=== PATIENT | male | born 1970 | race Caucasian/White ===

== ENCOUNTER 2023-07-08 11:31 | Emergency (ER) | payer BC, SELFPAY ==
[2023-07-08 11:34] VITALS: BP 142/80; PULSE 101; RESP 18; TEMP 36.6; O2SAT 95; BMI 50.2
--- NOTE | 2023-07-08 11:57 | CT_ITS ---
[address] [address] Patient Name: LUCINA GOODRICH MRN: [id number] date: 1970 Sex: M Assigned Patient Location: ER Current Patient Location: ED.MAIN Accession/Order Number: [id number] Exam Date: 07/08/2023 12:25 Report Date: 07/08/2023 12:56 At the request of: KEHINDE BAUM Procedure: CT abdomen pelvis w con EXAMINATION: CT abdomen pelvis w con HISTORY: upper abd pain COMPARISON: No relevant comparison available. TECHNIQUE: CT images were created with IV contrast. Axial, Coronal, and Sagittal images. Dose reduction techniques were achieved by using automated exposure control and/or adjustment of mA and/or kV according to patient size and/or use of iterative reconstruction technique. FINDINGS: LUNG BASES: Mild bibasilar opacities, atelectasis is favored. 1.3 cm right pleural effusion. LIVER: Diffuse hypoattenuation the liver suggesting hepatic steatosis BILIARY: Gallbladder wall thickening with a small amount of pericholecystic cystic fluid and mesenteric stranding PANCREAS: No lesion, fluid collection, ductal dilatation, or atrophy. SPLEEN: No enlargement or focal lesion. ADRENALS: No mass or enlargement. KIDNEYS: No mass, obstruction, or calcification. Left renal cortical hypodensity, a cyst is favored BOWEL/MESENTERY: No visible mass, obstruction, or bowel wall thickening. Small amount of free pelvic fluid AORTA/VASCULAR: No aneurysm or dissection. RETROPERITONEUM: No mass or adenopathy. LYMPH NODES: No adenopathy. URINARY BLADDER: No visible focal wall thickening, lesion, or calculus. PELVIC ORGANS: No visible mass. Pelvic organs appropriate for patient age. ABDOMINAL WALL: No mass or hernia. BONES: No bony lesion or fracture. OTHER: Negative. CT/CT abdomen pelvis w con IMPRESSION: Findings are consistent with acute cholecystitis Electronically authenticated by: CAROLINA KENNEDY Date: 07/08/2023 12:56
--- NOTE | 2023-07-08 11:58 | ED.ABDPAIN1 ---
HPI - Abdominal Pain General Chief Complaint: Abdominal Pain Stated Complaint: abdominal pain Time Seen by Provider: 07/08/23 11:52 Source: patient Mode of arrival: walk-in Limitations: no limitations History of Present Illness HPI narrative: 53-year-old male presents to the emergency department for abdominal pain. He points to the epigastric area and the right upper quadrant and he's had it for three weeks. He states he has a fullness there. He's been having normal bowel movements, not passing blood. No trauma or fever. A month ago he had an upper respiratory infection has resolved. The pain is moderate and continuous. Related Data Allergies Allergy/AdvReac Type Severity Reaction Status Date / Time amoxicillin Allergy Unknown Verified 07/08/23 11:34 Review of Systems ROS Narrative A ten point review of systems is negative except as noted above. PFSH PFSH Social History Smoking status: Never smoker Exam Narrative Exam Narrative: Nurses note and vital signs reviewed and patient is not hypoxic. General: The patient appears well and in no apparent distress. Patient is resting comfortably on cart. Skin: Warm, dry, no pallor noted. There is no rash noted. Head: Normocephalic, atraumatic Eye: Normal conjunctiva, no drainage Ears, Nose, Mouth, and Throat: oral mucosa is moist. Nares patent. Cardiovascular: Regular Rate and Rhythm Respiratory: Patient is in no distress, no accessory muscle use, lungs are clear to auscultation, no wheezing, rales or rhonchi Back: non-tender GI: obese, nondistended. No rash. He has mild tenderness in the epigastric and right upper quadrant area. Musculoskeletal: The patient has no evidence of calf tenderness, no pitting edema, symmetrical pulses noted bilaterally Neurological: A&O, normal speech Psychiatric: Cooperative Constitutional Vital Signs, click to edit/add: Last Vital Signs Temp 98 F 07/08/23 11:34 Pulse 91 H 07/08/23 15:07 Resp 16 07/08/23 15:07 BP 136/87 07/08/23 15:07 Pulse Ox 98 07/08/23 15:07 O2 Del Method Room Air 07/08/23 11:34 Course Vital Signs Vital signs: Vital Signs Temperature 98 F 07/08/23 11:34 Pulse Rate 101 H 07/08/23 11:34 Respiratory Rate 18 07/08/23 11:34 Blood Pressure 142/80 H 07/08/23 11:34 Pulse Oximetry 95 07/08/23 11:34 Oxygen Delivery Method Room Air 07/08/23 11:34 Temperature 98 F 07/08/23 11:34 Pulse Rate 91 H 07/08/23 15:07 Respiratory Rate 16 07/08/23 15:07 Blood Pressure 136/87 07/08/23 15:07 Pulse Oximetry 98 07/08/23 15:07 Oxygen Delivery Method Room Air 07/08/23 11:34 MDM - Abdominal Pain MDM Narrative Medical decision making narrative: Labs are essentially normal. Gallbladder ultrasound and CT indicate acute cholecystitis. Case discussed with Dr. Hawthorne who has reviewed his testing and suggests that the patient requires percutaneous drainage with later removal of his gallbladder. I've discussed the case with the patient and I've spoken to hospitalist and surgeon at [facility] and the patient is accepted there. Treatment diagnosis and disposition were discussed with the patient. Differential Diagnosis Differential diagnosis: Likely abdominal pain, acute appendicitis, constipation, diverticulitis, pancreatitis (acute cholecystitis, biliary colic) and small bowel obstruction Lab Data Attestation: I reviewed the patient's lab results. Labs: Lab Results 07/08/23 Range/Units 12:15 WBC 9.0 (4.0-11.0) 10^3/uL RBC 4.79 (4.70-6.10) 10^6/uL Hgb 14.4 (14.0-18.0) g/dL Hct 43.3 (42.0-54.0) % MCV 90.4 (80.0-94.0) fL MCH 30.1 (25.9-34.0) pg MCHC 33.3 (29.9-35.2) g/dL RDW 13.7 (11.0-15.0) % Plt Count 260 (150-450) 10^3/uL MPV 11.5 (9.5-13.5) fL Neut % (Auto) 68.9 (43.0-75.0) % Lymph % (Auto) 20.8 (20.5-60.0) % [place] % (Auto) 7.6 (1.7-12.0) % Eos % (Auto) 1.6 (0.9-7.0) % Baso % (Auto) 0.9 (0.2-2.0) % Neut # (Auto) 6.2 (1.4-6.5) 10^3/uL Lymph # (Auto) 1.9 (1.2-3.8) 10^3/uL [place] # (Auto) 0.7 (0.3-0.8) 10^3/uL Eos # (Auto) 0.1 (0.0-0.7) 10^3/uL Baso # (Auto) 0.1 (0.0-0.1) 10^3/uL Abs Immat Gran (auto) 0.02 (0.00-0.03) 10^3/uL Imm/Tot Granulo (auto) 0.2 (0.0-0.5) % Sodium 142 (136-145) mmol/L Potassium 4.1 (3.5-5.1) mmol/L Chloride 106 (98-107) mmol/L Carbon Dioxide 28.2 (21.0-32.0) mmol/L Anion Gap 11.9 BUN 14.0 (7.0-18.0) mg/dL Creatinine 0.95 (0.70-1.30) mg/dL Est GFR ( Amer) >60 (>=60) Est GFR (Non-Af Amer) >60 (>=60) BUN/Creatinine Ratio 14.7 Glucose 101 (74-106) mg/dL Calcium 8.6 (8.5-10.1) mg/dL Total Bilirubin 0.8 (0.2-1.0) mg/dL Direct Bilirubin 0.2 (0.0-0.2) mg/dL AST 30 (15-37) U/L ALT 45 (16-63) U/L Alkaline Phosphatase 45 L (46-116) U/L Total Protein 6.4 (6.4-8.2) g/dL Albumin 3.1 L (3.4-5.0) g/dL Globulin 3.3 g/dL Albumin/Globulin Ratio 0.9 Amylase 31 (25-115) U/L Lipase 25.0 (16.0-77.0) U/L Imaging Data CT scan - abdomen: Radiologist's impression: ITS Impressions Abdomen/Pelvis CT 07/08/23 11:57 IMPRESSION: Findings are consistent with acute cholecystitis Electronically authenticated by: CAROLINA KENNEDY Date: 07/08/2023 12:56 Upper Quadrant Ultrasound 07/08/23 14:06 IMPRESSION: Gallbladder wall thickening consistent with cholecystitis Electronically authenticated by: CAROLINA KENNEDY Date: 07/08/2023 14:51 Discharge Plan Discharge Chief Complaint: Abdominal Pain Clinical Impression: Acute cholecystitis Patient Disposition: [facility] Time of Disposition Decision: 14:00 Discharge Location: [facility] Condition: Good Mode of Transportation: EMS
[2023-07-08 12:30] LABS: Basophils Absolute Auto 0.1 10^3/uL (0.0-0.1); Basophils Percent Auto 0.9 % (0.2-2.0); Eosinophils Absolute Auto 0.1 10^3/uL (0.0-0.7); Eosinophils Percent Auto 1.6 % (0.9-7.0); Hematocrit 43.3 % (42.0-54.0); Hemoglobin 14.4 g/dL (14.0-18.0); Immature Granulocytes Abs Auto 0.02 10^3/uL (0.00-0.03); Immature Granulocytes Pct Auto 0.2 % (0.0-0.5); Lymphocytes Absolute Auto 1.9 10^3/uL (1.2-3.8); Lymphocytes Percent Auto 20.8 % (20.5-60.0); Mean Corpuscular HGB Conc 33.3 g/dL (29.9-35.2); Mean Corpuscular Hemoglobin 30.1 pg (25.9-34.0); Mean Corpuscular Volume 90.4 fL (80.0-94.0); Mean Platelet Volume 11.5 fL (9.5-13.5); Monocytes Absolute Auto 0.7 10^3/uL (0.3-0.8); Monocytes Percent Auto 7.6 % (1.7-12.0); Neutrophils Absolute Auto 6.2 10^3/uL (1.4-6.5); Neutrophils Percent Auto 68.9 % (43.0-75.0); Platelet Count 260 10^3/uL (150-450); Red Blood Count 4.79 10^6/uL (4.70-6.10); Red Cell Distribution Width 13.7 % (11.0-15.0)
[2023-07-08 12:52] LABS: Alanine Aminotransferase 45 U/L (16-63); Albumin Globulin Ratio 0.9; Albumin Level 3.1 g/dL (3.4-5.0); Alkaline Phosphatase 45 U/L (46-116); Amylase 31 U/L (25-115); Anion Gap 11.9; Aspartate Amino Transferase 30 U/L (15-37); BUN Creatinine Ratio 14.7; Bilirubin Direct 0.2 mg/dL (0.0-0.2); Bilirubin Total 0.8 mg/dL (0.2-1.0); Calcium 8.6 mg/dL (8.5-10.1); Carbon Dioxide 28.2 mmol/L (21.0-32.0); Chloride 106 mmol/L (98-107); Estimated GFR (African America >60 (>=60); Estimated GFR (Non-African Ame >60 (>=60); Globulin 3.3 g/dL; Glucose 101 mg/dL (74-106); Potassium 4.1 mmol/L (3.5-5.1); Sodium 142 mmol/L (136-145); Total Protein 6.4 g/dL (6.4-8.2)
--- NOTE | 2023-07-08 14:06 | US_ITS ---
The [address] [address] Patient Name: LUCINA GOODRICH MRN: [id number] date: 1970 Sex: M Assigned Patient Location: ER Current Patient Location: ER Accession/Order Number: [id number] Exam Date: 07/08/2023 14:15 Report Date: 07/08/2023 14:51 At the request of: KEHINDE BAUM Procedure: US right upper quadrant EXAM: US right upper quadrant HISTORY: RUQ pain COMPARISON: CT exam same day. TECHNIQUE: Grayscale, color and Doppler FINDINGS: The liver is normal in size, contour and echotexture with no focal mass. Hepatopedal flow in the main portal vein with a velocity of 17 cm/s. The gallbladder is significant for a thickened wall measuring 4.7 mm. No pericholecystic fluid. The common bile duct measures 2.9 mm, normal. The visualized pancreas is normal The right kidney is normal measuring 12.7 x 5.6 x 5.6 cm. No solid mass or hydronephrosis No ascites US/US right upper quadrant IMPRESSION: Gallbladder wall thickening consistent with cholecystitis Electronically authenticated by: CAROLINA KENNEDY Date: 07/08/2023 14:51
[2023-07-08 15:07] VITALS: BP 136/87; PULSE 91; RESP 16; O2SAT 98
[2023-07-08] MEDS: METRONIDAZOLE/SODIUM CHLORIDE 500 MG/100 ML PREMIX 100 MG IV (16:07)
[2023-07-08] MEDS: CIPROFLOXACIN IN 5 % DEXTROSE 400 MG/200 ML PIGGYBACK IV (17:08)
== END 2023-07-08 19:37 | disposition short-term general hospital (02) ==
PROVIDERS: Emergency Provider Emergency Medicine
DX: K81.0 Acute cholecystitis (principal)
CPT/HCPCS: 36415; 74177; 76705; 80048; 80076; 82150; 83690; 85025; 96365; 96375; 99285; J0744; J1836; Q9967

== ENCOUNTER 2024-12-17 17:49 | Emergency (ER) | payer BC, SELFPAY ==
[2024-12-17 17:54] VITALS: BP 131/90; PULSE 114; TEMP 37.9; O2SAT 97; BMI 48.2
--- OUTSIDE RECORDS SUMMARY | 2024-12-17 17:59 | XMS_ITS | Encounter Summary ---
[id number] [address] [place] [address] Care Team Providers Care Tape Controlled Machine Stitcher Name Role Phone Nataly Shepard MD Primary Care Provider Encounter Details Date Type Department Care Team (Late st Contact Info) Description 07/17/2023 [facility] [address] [place] [address] [place] [address] Nasrin Gunn CMA Social History Tobacco Use Types Packs/Day Years Used Date Smoking Tobacco: Never Smokeless Tobacco: Never Alcohol Use Standard Drinks/Week Comments Yes 6 (1 standard drink = 0.6 oz pur e alcohol) weekly AUDIT-C Answer Date Recorded Q1: How often do you have a drink containing alc ohol? 2-4 times a month 07/08/2023 Q2: How many drinks containi ng alcohol do you have on a typical day when you are drinking? 1 or 2 07/08/2023 Q3: How often do you have si x or more drinks on one occasion? Never 07/08/2023 PHQ-2 Answer Date Recorded Total Score 0 07/08/2023 Childcare Answer Date Recorded Childcare Unknown 11/26/2018 Employment Answer Date Recorded Employment Unknown 11/26/2018 Hunger Screening Answer Date Recorded Within the past 12 months we worried whether our food would run out before we got money to buy more. Never True 07/24/2022 Within the past 12 months th e food we bought just didn't last and we didn't have money to get more. Never True 07/24/2022 Purpose - Life Answer Date Recorded Purpose and direction in life Unknown Sex and Gender Information Value Date Recorded Sex Assigned at Not on file Legal Sex Male 11:45 AM EDT Gender Identity Not on file Sexual Orientation Not on file documented as of this encounter Miscellaneous Notes * Telephone Encounter - Nasrin Gunn CMA - 07/17/2023 9:57 AM EST Patient called into office stating he was home from [facility] and was discharged yesterday 07/16/23. Patient is wondering if he is okay to take otc tylenol for headaches, he wasn't sure with the new medications he is on. Please advise? His follow up with provider is 07/25/23 * Telephone Encounter - Nataly Shepard MD - 07/17/2023 9:57 AM EST Yup that would be safe and ok Please call and notify patient. Thanks, NATALY SHEPARD MD 07/19/23 * Telephone Encounter - Nasrin Gunn CMA - 07/17/2023 9:57 AM EST Patient was called and notified. documented in this encounter Plan of Treatment Upcoming Encounters Date Type Department Care Team (Late st Contact Info) Description 12/24/2024 11:45 AM EDT Telemedicine [facility] [address] [place] [address] [place] [phone] Nataly Shepard MD [address], [place], [place] [phone] 02/17/2025 1:00 PM EDT Office Visit [facility] [address] [place] [phone] Mary Whitlock, NASCAR DRIVER-ENTRY LEVEL ADMINISTRATIVE ASSISTANT [address] [place] [address], [address] [place] [address] documented as of this encounter Goals Goal Patient Goal Type Associated Problems Recent Progress Patient-Stated? Author home General Yes Concha Jones, RN Note: Evaluation of progress towards goal: Patient plans to discharge home with self care and with assistance from family. documented as of this encounter Visit Diagnoses Not on filedocumented in this encounter Additional Health Concerns Assessment Noted Time PHQ-9 Depression Total Score: 0 07/08/19 24 9:44 PM EST A Body Mass Index follow-up plan has been documented for the patient 08/01/2020 3:45 PM EST documented as of this encounter Care Teams Tape Controlled Machine Stitcher Relationship Specialty Start Date End Date Nataly Shepard MD [address] [place] [address] PCP - General Internal Medicine 01/31/23 documented as of this encounter
--- OUTSIDE RECORDS SUMMARY | 2024-12-17 17:59 | XMS_ITS | Encounter Summary ---
[facility] Address [id number] [address] [place] [address] Care Team Providers Care Fine Sander Name Role Phone Nataly Shepard MD Primary Care Provider [phone] Reason for Visit * Reason Onset Date Comments Transition Of Care 07/17/2023 Encounter Details Date Type Department Care Team (Late st Contact Info) Description 07/17/2023 Telephone [facility] [address] [place] [address] [place] [address] Caridad Gamboa RN Transition Of Care Social History Tobacco Use Types Packs/Day Years [...] encounter Miscellaneous Notes * Telephone Encounter - Caridad Gamboa RN - 07/17/2023 1:50 PM EST Images from the original note were not included. Transition of Care Additional Questions/Concerns Requiring PCP Follow-Up: This documentation is being used for Transition of Care purposes: Yes Goal: Patient will demonstrate a safe transition from hospital to home. Diagnosis on Discharge: Acute cholecystitis Atrial fibrillation Hypomagnesemia Discharge Specialty: Cardiac and Gastroenterology Name of Discharging Facility: [facility] Date of Facility Discharge: 07.08.23-07.16.23 Date of Interactive Contact and Name of Clinical Research Scientist: 07.17.23 [id number] Left a message. 07.18.23 8450 Spoke with the patient. Medication Review Completed: Yes -Reviewed the patients medication list with him. EHR list is up to date. Follow Up Appointments with Providers: Primary: NATALY SHEPARD MD 07.25.23 845 am Specialty: Cardiology 07.25.23 12 pm Specialty: General Surgery 08.07.23 12 pm Specialty: Pulmonology 02.23.24 930 am Review of Pending Lab/Diagnostic Tests and Plan for Completion: -None Assessment and Support of Treatment Regimen Adherence and Medication Management: -Patient reports he is doing fine. -Patient denies any chest pain, shortness of breath, palpitations, fever or chills. -Patient has a perc drain that he is emptying and flushing 1-2 times a day. He is logging the drainage for the surgeons office. -Patient is checking his BP and HR 2 times a day. This morning his BP was 132/84 and HR was 72. -Patient is independent with his medication and treatment regime. Education Provided by [facility] to Support Self-Management, Independent Living and ADLs: -Patient lives with his . -Patient denies the need for any DME. -Medication education was provided. -Encouraged to call the office with any questions, concerns, new or worsening symptoms. -Instructed to call 911 with any sudden shortness of breath, chest pain or stroke symptoms. We discussed stroke symptoms. -Explained TCM services that are available. Explained that [facility] will be available to provide assistance for a minimum of 30 days post discharge. Martha Amador's contact information was provided and encouraged patient to call for assistance as needed. Communication with Home Health Agencies and Other Services Utilized/Needed by the Patient: -None documented in this encounter Plan of Treatment Upcoming Encounters Date Type Department Care Team (Late st Contact Info) Description 12/24/2024 11:45 AM EDT Telemedicine [facility] [address] [place] [address] [place] [phone] Nataly Shepard MD [address] [place] [phone] 02/17/2025 1:00 PM EDT Office Visit [facility] [address] [place] [address] Mary Whitlock, JAVA PORTAL DEVELOPER-MANAGER STAFFING [address] [facility], [address] [place] [address] documented as of this encounter Goals Goal Patient Goal Type Associated Problems Recent Progress Patient-Stated? Author home General Yes Concha Jones RN Note: Evaluation of progress towards goal: [...] documented as of this encounter Care Teams Fine Sander Relationship Specialty Start Date End Date Nataly Shepard MD [address] [place], [place] [phone] PCP - General Internal Medicine 01/31/23 documented as of this encounter
--- OUTSIDE RECORDS SUMMARY | 2024-12-17 18:00 | XMS_ITS | Clinical Summary ---
Author Organization [facility] Address [facility] [id number] [address] [place] [address] Care Team Providers Care Apprenticeship Training Representative Name Role Phone Nataly Rome MD Primary Care Provider [phone] Allergies Active Allergy Reactions Criticality Noted Date Comments Penicillins Hives,Itching,Facial Swelling 08/02 Medications aspirin 81 mg Take 1 tablet (81 mg total) by mouth in the morning. Active atorvastatin (LIPITOR) 40 mg tablet Take 1 tablet (40 mg total) by mouth in the morning. 30 tablet 5 10/15/2024 Active Active Problems Problem Noted Date Diagnosed Date ASCVD (arteriosclerotic cardiovascular disease) 08/19/2023 Persistent atrial fibrillation 07/09/2023 Hypomagnesemia 07/09/2023 Acute cholecystitis 07/08/2023 Primary hypertension 04/03/2022 Screen for colon cancer 07/13/2020 Encounters Date Type Department Care Team Description 11/05/2024 Telephone [facility] [address] [place] [address] Myra Allison, PRAVEEN med list update 10/15/2024 Refill [facility] [address] [place] [address] Jude Heredia RN Med Refill 10/07/2024 6:30 AM EDT Office Visit [facility] [address] [place] [address] Augustina Brown, WOUND TREATMENT RN-SURVEYOR MINE Persistent atrial fibrillation (CMS-HCC) (Primary Dx); ASCVD (arteriosclerotic cardiovascular disease); Primary hypertension 10/07/2024 Refill [facility] [address] [place] [phone] Augustina Brown, WOUND TREATMENT RN-SURVEYOR MINE 10/05/2024 Travel from Last 3 Months Immunizations Immunization Administration Dates Next Due DTP 02/08/1976,03/11/1972,1970 ,1970,1970 Hepatitis B 03/19/2003,11/18/2002,04/18/2001 MMR 01/26/1985 Measles 1971 OPV 02/08/1976,03/11/1972,1970 ,1970 Rubella 07/10/1971 Tdap 01/05/2013 Family History Medical History Relation Name Comments Alcohol abuse Brother Siblings No Known Problems Daughter Rectal cancer Father Stomach cancer Father No Known Problems Maternal Grandfather Colon cancer Maternal Grandmother Shaunna Breast cancer Mother Maryann Heart disease Mother Maryann Hypertension Mother Maryann No Known Problems Paternal Grandfather No Known Problems Paternal Grandmother Breast cancer Sister Abby No Known Problems Son Relation Name Status Comments Brother Siblings Alive Daughter Alive Father Alive Maternal Grandfather Maternal Grandmother Shaunna Mother Maryann Alive Paternal Grandfather Paternal Grandmother Sister Abby Alive Son Alive Social History Tobacco Use Types Packs/Day Years Used Date Smoking Tobacco: Never Smokeless Tobacco: Never Tobacco Cessation:Counseling Given: Not Answered Alcohol Use Standard Drinks/Week Comments Yes 6 (1 standard drink = 0.6 oz pur e alcohol) weekly, NOT SINCE HEART Sx AUDIT-C Answer Date Recorded Q1: How often [...] got money to buy more. Never True 05/13/2024 Within the past 12 months th e food we bought just didn't last and we didn't have money to get more. Never True 05/13/2024 Purpose - Life Answer Date Recorded Purpose and direction in life Unknown Sex and Gender Information Value Date Recorded Sex Assigned at Not on file Legal Sex Male 11:45 AM EDT Gender Identity Not on file Sexual Orientation Not on file Last Filed Vital Signs Vital Sign Reading Time Taken Comments Blood Pressure 118/74 10/07/2024 6:19 AM EDT Pulse 77 10/07/2024 6:19 AM EDT Temperature 36.8 C (98.3 F) 2024 10:47 AM EST Respiratory Rate 14 03/10/2024 5:35 PM EDT Oxygen Saturation 98% 10/07/2024 6:19 AM EDT Inhaled Oxygen Concentration - - Weight 153.8 kg (339 lb) 10/07/2024 6:19 AM EDT Height 177.8 cm (5' 10 ) 10/07/2024 6:19 AM EDT Body Mass Index 48.64 10/07/2024 6:19 AM EDT Plan of Treatment Upcoming Encounters Date Type Department Care Team (Late st Contact Info) Description 12/24/2024 11:45 AM EDT Telemedicine [facility] [address] [place] [address] [place] [phone] Nataly Rome MD [address] [place] [address] 02/17/2025 1:00 PM EDT Office Visit [facility] [address] [facility] [address] [place] [address] Mary Whitlock, WOUND TREATMENT RN-SURVEYOR MINE [address] [facility], [address] [place] [address] Health Maintenance Due Date Last Done Comments Diabetic Ophthalmology Exam 1970 Adult BMI Follow Up Plan 1988 Diabetic Foot Exam 1988 Zoster (Shingles) Vaccine (1 of 2) 2020 DTaP,Tdap and Td Vaccines (6 - Td or Tdap) 01/05/2023 01/05/2013, 02/08/1976, 03/11/1972, Additional history exists COVID-19 Vaccine (3 - 2023-2 5 season) 2024 12/07/2020, 10/21/2020 Depression Screening 07/08/2024 07/08/2023 Influenza Vaccine 02/15/2025 Colonoscopy 08/15/2025 08/15/2020 Adult BMI Screening 10/07/2025 10/07/2024 Tobacco Screening 10/07/2025 10/07/2024 Goals Goal Patient Goal Type Associated Problems Recent Progress Patient-Stated? Author home General Yes Concha Jones, RN Note: Evaluation of progress towards goal: Patient plans to discharge home with self care and with assistance from family. Medical Devices Not on file Procedures Procedure Name Priority Date/Time Associated Diagnosis Comments COLONOSCOPY Routine 08/15/2020 from Last 3 Months or Most Recently Relevant to Health Maintenance Results * COLONOSCOPY (08/15/2020) 08/15/2020 us Scanning Provider External HEALTH MAINTENANCE Fi nal Result MANUALLY TRANSCRIBED RESULTS from Last 3 Months or Most Recently Relevant to Health Maintenance Insurance ANTHE[employer] Advance Directives * Full Code (Latest Code Status on File) Date Activated Date Inactivated Comments 03/10/2024 3:04 PM 03/11/2024 12:36 AM * Full Code Date Activated Date Inactivated Comments 07/08/2023 9:09 PM 07/16/2023 6:01 PM Care Teams Apprenticeship Training Representative Relationship Specialty Start Date End Date Nataly Rome MD [address] [place] [address] PCP - General Internal Medicine 01/31/23
--- OUTSIDE RECORDS SUMMARY | 2024-12-17 18:00 | XMS_ITS | Encounter Summary ---
Author Organization [facility] Address [id number] [address] [place] [address] Care Team Providers Care Supervisor Chemical Name Role Phone Nataly Rome MD Primary Care Provider [phone] Reason for Visit * Reason Comments Med Refill Encounter Details Date Type Department Care Team (Late st Contact Info) Description 04/25/2022 Refill [facility] [address] [place] [address] [place] [phone] Radha Matta, MANUFACTURING ENGINEERING TECHNICIAN-POLICE INSPECTOR [address] [place], [place] [id number] LVH (left ventricular hypertrophy); Primary hypertension Social History Tobacco Use Types Packs/Day Years Used Date Smoking Tobacco: Never Smokeless Tobacco: Never Alcohol Use Standard Drinks/Week Comments Yes 6 (1 standard drink = 0.6 oz pur e alcohol) weekly PHQ-2 Answer Date Recorded Total Score 0 01/29/2022 Childcare Answer Date Recorded Childcare Unknown 11/26/2018 Employment Answer Date Recorded Employment Unknown 11/26/2018 Purpose - Life Answer Date Recorded Purpose and direction in life Unknown Sex and Gender Information Value Date Recorded Sex Assigned at Not on file Legal Sex Male 11:45 AM EDT Gender Identity Not on file Sexual Orientation Not on file COVID-19 Exposure Response Date Recorded In the last month, have you been in contact with someone who was confirmed or suspected to have Coronavirus / COVID-19? No / Unsure 04/17/2022 1:09 PM EDT documented as of this encounter Miscellaneous Notes * Telephone Encounter - Shannan JABIER Sweeney - 04/25/2022 9:42 AM EST Please done this, radha changed the dose documented in this encounter Plan of Treatment Upcoming Encounters Date Type Department Care Team (Late st Contact Info) Description 12/24/2024 11:45 AM EDT Telemedicine [facility] [address] [place] [address] [place] [address] Nataly Rome MD [address] [facility], [place] [phone] 02/17/2025 1:00 PM EDT Office Visit [facility] [place] [phone] Mary Whitlock APRN-CNP [address] [facility], [address] [place] [address] documented as of this encounter Visit Diagnoses Diagnosis LVH (left ventricular hypertrophy) Cardiomegaly Primary hypertension Unspecified essential hypertension documented in this encounter Additional Health Concerns Assessment Noted Time PHQ-9 Depression Total Score: 0 01/30/20 22 2:39 PM EDT A Body Mass Index follow-up plan has been documented for the patient 08/01/2020 3:45 PM EST documented as of this encounter Care Teams Supervisor Chemical Relationship Specialty Start Date End Date Nataly Rome MD [address], [place], [place] [phone] PCP - General Internal Medicine 01/31/23 documented as of this encounter
--- OUTSIDE RECORDS SUMMARY | 2024-12-17 18:00 | XMS_ITS | Encounter Summary ---
Author Organization [facility] Address [facility] [place][id number] [address] [place] [address] Care Team Providers Care Insurance Legal Assistant Name Role Phone Nataly Rome MD Primary Care Provider [phone] Encounter Details Date Type Department Care Team (Late st Contact Info) Description 09/10/2024 Orders Only [facility] [address] [address] Sangeetha Zhang SHAYNA (obstructive sleep apnea) (Primary Dx) Social History Tobacco Use Types Packs/Day Years [...] on file documented as of this encounter Plan of Treatment Upcoming Encounters Date Type Department Care Team (Late st Contact Info) Description 12/24/2024 11:45 AM EDT Telemedicine [facility] [address] [facility] [place] [phone] Nataly Rome MD [address], [place], [place] [address] 02/17/2025 1:00 PM EDT Office Visit [facility] [address] [facility] [place] [phone] Mary Whitlock, COMMUNICATIONS FIELD TECHNICIAN-LEAK GANG SUPERVISOR [address] [place] [address] documented as of this encounter Goals Goal Patient Goal Type Associated Problems Recent Progress Patient-Stated? Author home General Yes Concha Jones RN Note: Evaluation of progress towards goal: Patient plans to discharge home with self care and with assistance from family. documented as of this encounter Visit Diagnoses Diagnosis SHAYNA (obstructive sleep apnea)- Primary Obstructive sleep apnea (adult) (pediatric) documented in this encounter Additional Health Concerns Assessment Noted Time PHQ-9 Depression Total Score: 0 07/08/19 24 9:44 PM EST A Body Mass Index follow-up plan has been documented for the patient 08/01/2020 3:45 PM EST documented as of this encounter Care Teams Insurance Legal Assistant Relationship Specialty Start Date End Date Nataly Rome MD [address], [place], [place] [phone] PCP - General Internal Medicine 01/31/23 documented as of this encounter
--- OUTSIDE RECORDS SUMMARY | 2024-12-17 18:00 | XMS_ITS | Encounter Summary ---
Author [facility] Address [facility][id number] [address] [place] [address] Care Team Providers Care Bone Drier Name Role Phone Nataly Rome MD Primary Care Provider [phone] Encounter Details Date Type Department Care Team (Late st Contact Info) Description 01/03/2023 Telephone [facility] Family Medicine [address] [place] [address] [place] [address] Nasrin Gunn CMA Social History [...] Telephone Encounter - Nasrin Gunn CMA - 01/03/2023 9:49 AM EDT Patient was called to schedule with new PCP, no answer lvm documented in this encounter Plan of Treatment Upcoming Encounters Date Type Department Care Team (Late st Contact Info) Description 12/24/2024 11:45 AM EDT Telemedicine [facility] [address] [place] [address] Nataly Rome MD [address] [place], [place] [address] 02/17/2025 1:00 PM EDT Office Visit [facility] [address] [facility] [place] [address] Mary Whitlock, CONCRETE FENCE BUILDER-CORPORATE TRUST OFFICER [address] [place] [address], [address] [address] documented as of this encounter Visit Diagnoses Not on filedocumented in this encounter Additional Health Concerns Assessment Noted Time PHQ-9 Depression Total Score: 0 01/30/20 22 2:39 PM EDT A Body Mass Index follow-up plan has been documented for the patient 08/01/2020 3:45 PM EST documented as of this encounter Care Teams Bone Drier Relationship Specialty Start Date End Date Nataly Rome MD [address] [place], [place] [phone] PCP - General Internal Medicine 01/31/23 documented as of this encounter
--- OUTSIDE RECORDS SUMMARY | 2024-12-17 18:00 | XMS_ITS | Encounter Summary ---
Author Organization [facility] Address [id number] [address] [place] [address] Care Team Providers Care Plant Scientist Name Role Phone Nataly Rome MD Primary Care Provider [phone] Encounter Details Date Type Department Care Team (Late st Contact Info) Description 06/19/2022 Telephone [facility] Family Medicine [address] [place] [address] [address] Nasrin Gunn CMA Social History [...] have Coronavirus / COVID-19? No / Unsure 06/21/2022 3:49 PM EST documented as of this encounter Miscellaneous Notes * Telephone Encounter - Nasrin Gunn CMA - 06/19/2022 1:44 PM EST Patient called in regards to his lisinopril, he stated that he feels it is helping however he has an extreme dry cough when he is taking it. He stated he has tried increasing his fluid intake. Was looking to see if he could be put on something else. Please advise. * Telephone Encounter - JABIER Peterson - 06/19/2022 1:44 PM EST Please have patient schedule an appointment for re-evaluation of his blood pressure. documented in this encounter Plan of Treatment Upcoming Encounters Date Type Department Care Team (Late st Contact Info) Description 12/24/2024 11:45 AM EDT Telemedicine [facility] [address] [place] [phone] Nataly Rome MD 605 [place], [place] [address] 02/17/2025 1:00 PM EDT Office Visit [facility] [address] [facility] [place] [address] Mary Whitlock APRNCARLINE [address] [place] [address] documented as of this encounter Visit Diagnoses Not on filedocumented in this encounter Additional Health Concerns Assessment Noted Time PHQ-9 Depression Total Score: 0 01/30/20 22 2:39 PM EDT A Body Mass Index follow-up plan has been documented for the patient 08/01/2020 3:45 PM EST documented as of this encounter Care Teams Plant Scientist Relationship Specialty Start Date End Date Nataly Rome MD [address] [place], [place] [phone] PCP - General Internal Medicine 01/31/23 documented as of this encounter
--- OUTSIDE RECORDS SUMMARY | 2024-12-17 18:00 | XMS_ITS | Encounter Summary ---
Author Organization [facility] tem Address [id number] [address] [place] [address] Care Team Providers Care Machine Shop Instructor Name Role Phone Nataly Rome MD Primary Care Provider [phone] Encounter Details Date Type Department Care Team (Late st Contact Info) Description 05/31/2023 Telephone [facility] [address] [place] [address] [place] [address] Nasrin Gunn CMA Social History [...] Telephone Encounter - Nasrin Gunn CMA - 05/31/2023 1:44 PM EST Patient was called to reschedule appointment (provider at [facility] all week) lvm to call office. documented in this encounter Plan of Treatment Upcoming Encounters Date Type Department Care Team (Late st Contact Info) Description 12/24/2024 11:45 AM EDT Telemedicine [facility] [address] [facility] [address] Nataly Rome MD 605 [facility][1][place], [place] [address] 02/17/2025 1:00 PM EDT Office Visit [facility] [place] [phone] Mary Whitlock, REMOTE SENSING SPECIALIST-LAPEL PADDER [address] [place] [address] documented as of this encounter Visit Diagnoses Not on filedocumented in this encounter Additional Health Concerns Assessment Noted Time PHQ-9 Depression Total Score: 0 01/30/20 22 2:39 PM EDT A Body Mass Index follow-up plan has been documented for the patient 08/01/2020 3:45 PM EST documented as of this encounter Care Teams Machine Shop Instructor Relationship Specialty Start Date End Date Nataly Rome MD [address] [facility][1][place], [place] [address] PCP - General Internal Medicine 01/31/23 documented as of this encounter
--- OUTSIDE RECORDS SUMMARY | 2024-12-17 18:00 | XMS_ITS | Encounter Summary ---
Author Organization [facility] Address [id number] [address] [place] [address] Care Team Providers Care Superintendent Service Name Role Phone Nataly Rome MD Primary Care Provider [phone] Encounter Details Date Type Department Care Team (Late st Contact Info) Description 07/31/2023 Orders Only [facility] [place] [address] Transcribe, Orders Support User Pain (Primary Dx) Social History Tobacco Use Types [...] got money to buy more. Never True 07/25/2023 Within the past 12 months th e food we bought just didn't last and we didn't have money to get more. Never True 07/25/2023 Purpose - Life Answer Date Recorded Purpose [...] Family Medicine [address] [place] [address] Nataly Rome MD [address] [place], [place] [address] 02/17/2025 1:00 PM EDT Office Visit [facility] [address] [facility] [address] Mary Whitlock, PURCHASER-TELESALES ADVISOR [address] [place] [address] documented as of this encounter Goals Goal Patient Goal Type Associated Problems Recent Progress Patient-Stated? Author home General Yes Concha Jones, RN Note: Evaluation of progress towards goal: Patient plans to discharge home with self care and with assistance from family. documented as of this encounter Visit Diagnoses Diagnosis Pain- Primary Generalized pain documented in this encounter Additional Health Concerns Assessment Noted Time PHQ-9 Depression Total Score: 0 07/08/19 24 9:44 PM EST A Body Mass Index follow-up plan has been documented for the patient 08/01/2020 3:45 PM EST documented as of this encounter Care Teams Superintendent Service Relationship Specialty Start Date End Date Nataly Rome MD [address] [place], [place] [address] PCP - General Internal Medicine 01/31/23 documented as of this encounter
--- OUTSIDE RECORDS SUMMARY | 2024-12-17 18:00 | XMS_ITS | Encounter Summary ---
Author Organization [facility] Address [facility] [place][id number] [address] [place] [address] Care Team Providers Care Analysis Reporting Developer Name Role Phone Nataly Rome MD Primary Care Provider [phone] Reason for Visit * Reason Comments Med Refill Encounter Details Date Type Department Care Team (Late st Contact Info) Description 09/18/2022 Refill [facility] [address] [place] [address] [place] [phone] Radha Matta, BREAD ROOM HAND-[facility] [address] [facility] [address] [place] [id number] Primary hypertension Social History Tobacco Use Types [...] Family Medicine [address] [place] [address] Nataly Rome MD 605 [place] [address] 02/17/2025 1:00 PM EDT Office Visit [facility] [address] [facility] [place] [address] Mary Whitlock, BREAD ROOM HAND-FINANCIAL RISK MANAGER [address] [facility] [address] [place] [address] documented as of this encounter Visit Diagnoses Diagnosis Primary hypertension Unspecified essential hypertension documented in this encounter Additional Health Concerns Assessment Noted Time PHQ-9 Depression Total Score: 0 01/30/20 22 2:39 PM EDT A Body Mass Index follow-up plan has been documented for the patient 08/01/2020 3:45 PM EST documented as of this encounter Care Teams Analysis Reporting Developer Relationship Specialty Start Date End Date Nataly Rome MD 605 [place], [place] [phone] PCP - General Internal Medicine 01/31/23 documented as of this encounter
--- OUTSIDE RECORDS SUMMARY | 2024-12-17 18:00 | XMS_ITS | Encounter Summary ---
Author Organization [facility] Address [facility] [place][id number] [address] [place] [address] Care Team Providers Care Color Separation Photographer Name Role Phone Nataly Rome MD Primary Care Provider Encounter Details Date Type Department Care Team (Late st Contact Info) Description 07/12/2023 Telephone [facility] [address] [place] [address] Alondra Stoddard MD [address] [place] [address] Social History Tobacco Use Types Packs/Day Years [...] encounter Miscellaneous Notes * Telephone Encounter - Lissett Mayberry - 07/12/2023 8:02 AM EST PER MESSAGE FROM THE 07/11/2023 D/ LIST: PER AAJ; PT STILL CURRENTLY ADMITTED AT [facility] DX:AFIB W/RVR AND PRIMARY HTN-PT NEEDS TO F/U IN 1-2 WEEKS POST D/C-KCS * Telephone Encounter - CORTES [place] - 07/12/2023 8:02 AM EST Still admitted.CORTES [place] * Telephone Encounter - Lynsey Abad CMA - 07/12/2023 8:02 AM EST Pt still admitted * Telephone Encounter - Nakia Estrada - 07/12/2023 8:02 AM EST PT IS STILL ADMITTED * Telephone Encounter - CORTES [place] - 07/12/2023 8:02 AM EST LMOM for the patient to call and schedule their next appointment with PPC. documented in this encounter Plan of Treatment Upcoming Encounters Date Type Department Care Team (Late st Contact Info) Description 12/24/2024 11:45 AM EDT [facility] [address] [place] [address] [place] [address] Nataly Rome MD [address] [place] [place], [place] [address] 02/17/2025 1:00 PM EDT Office Visit [facility] [address] [facility] [place] [phone] Mary Whitlock, TIE PRESSER-TURN MACHINE OPERATOR [address] [facility], [address] [place] [address] documented as of this encounter Goals Goal [...] documented as of this encounter Care Teams Color Separation Photographer Relationship Specialty Start Date End Date Nataly Rome MD [address] [place], [place] [phone] PCP - General Internal Medicine 01/31/23 documented as of this encounter
--- OUTSIDE RECORDS SUMMARY | 2024-12-17 18:00 | XMS_ITS | Encounter Summary ---
Author Organization [facility] s tem Address [facility][id number] [address] [place] [address] Care Team Providers Care Community Associate Name Role Phone Nataly Rome MD Primary Care Provider [phone] Encounter Details Date Type Department Care Team (Late st Contact Info) Description 06/18/2024 Telephone [facility] Family Medicine [address] [place] [address] [address] Janeen De Anda CMA Social History Tobacco Use Types Packs/Day Years Used Date Smoking Tobacco: Never Smokeless Tobacco: Never Alcohol Use Standard Drinks/Week Comments Not Currently 6 (1 standard drink = 0.6 oz [...] encounter Miscellaneous Notes * Telephone Encounter - Janeen De Anda CMA - 06/18/2024 9:13 AM EST Patient called today to inform us that he did see his cardiologish and they discussed patient starting the Ozempic. Dr Pop did inform patient if there was any issue is willing to write a letter forinsurance explaining patient could really use this medication due to weight causing cardio issues. Patient asked if we could call cardiology office to discuss. Patient was denied the medication due to not being diabetic. I did recommend patient make an appointment with PCP to discuss but patient does not want to unless he absolutely has to. Please advise? documented in this encounter Plan of Treatment Upcoming Encounters Date Type Department Care Team (Late st Contact Info) Description 12/24/2024 11:45 AM EDT Telemedicine [facility] [address] [place] [phone] Nataly Rome MD [address] [place] [address] 02/17/2025 1:00 PM EDT Office Visit [facility]Sleep [facility] [facility] [place] [address] Mary Whitlock, RURAL SERVICE ENGINEER-BAG LOADER MACHINE OPERATOR [address] [facility], [address] [place] [address] documented as of this encounter [...] Time PHQ-9 Depression Total Score: 0 07/08/19 9:44 PM EST A Body Mass Index follow-up plan has been documented for the patient 08/01/2020 3:45 PM EST documented as of this encounter Care Teams Community Associate Relationship Specialty Start Date End Date Nataly Rome MD [address] [facility] [place] [id number] PCP - General Internal Medicine 01/31/23 documented as of this encounter
--- OUTSIDE RECORDS SUMMARY | 2024-12-17 18:00 | XMS_ITS | Encounter Summary ---
Author Organization [facility] s tem Address [facility] [id number] [address] [place] [address] Care Team Providers Care Vice President Payment Name Role Phone Nataly Rome MD Primary Care Provider [phone] Encounter Details Date Type Department Care Team (Late st Contact Info) Description 05/27/2024 Telephone [facility] Family Medicine [address] [place] [address] Janeen De Anda CMA Social [...] Encounter - Janeen De Anda CMA - 05/27/2024 10:44 AM EST Patient called to inform PCP he spoke to his insurance and they will cover Ozempic or Monjario but both will need PA. Please advise? documented in this encounter Plan of Treatment Upcoming Encounters Date Type Department Care Team (Late st Contact Info) Description 12/24/2024 11:45 AM EDT Telemedicine [facility] [address] [place] [phone] Nataly Rome MD [address] [facility] [address] [place] [address] 02/17/2025 1:00 PM EDT Office Visit [facility]Sleep [facility] [facility] [place] [phone] Mary Whitlock, WIND TURBINE TECHNICIAN-WOOL CLASSER [address] [facility] [address] [place] [address] documented as of this encounter Goals [...] documented as of this encounter Care Teams Vice President Payment Relationship Specialty Start Date End Date Nataly Rome MD [address], [place] [address] PCP - General Internal Medicine 01/31/23 documented as of this encounter
--- OUTSIDE RECORDS SUMMARY | 2024-12-17 18:00 | XMS_ITS | Encounter Summary ---
Author Organization [facility] s tem Address [facility]-[id number] [address] [place] [address] Care Team Providers Care Agriculture Extension Specialist Name Role Phone Nataly Rome MD Primary Care Provider [phone] Encounter Details Date Type Department Care Team (Late st Contact Info) Description 07/15/2024 Telephone [facility] [address] [place] [address] [address] [place] [address] Nasrin Gunn CMA Social History [...] Telephone Encounter - Nasrin Gunn CMA - 07/15/2024 3:21 PM EST Patients Trulicity was denied by insurance. MA called patient to have them call customer service tofind what is covered by insurance. Patient will call office back. documented in this encounter Plan of Treatment Upcoming Encounters Date Type Department Care Team (Late st Contact Info) Description 12/24/2024 11:45 AM EDT Telemedicine [facility] [address] [place] [phone] Nataly Rome MD [address] [place] [phone] 02/17/2025 1:00 PM EDT Office Visit [facility]Sleep [facility] [facility] [place] [phone] Mary Whitlock, COFFEE HOST-VP INFORMATION TECHNOLOGY [address] [facility] [address] [place] [address] documented as of this encounter Goals Goal [...] documented as of this encounter Care Teams Agriculture Extension Specialist Relationship Specialty Start Date End Date Nataly Rome MD [address] [facility] [place] [address] PCP - General Internal Medicine 01/31/23 documented as of this encounter
--- OUTSIDE RECORDS SUMMARY | 2024-12-17 18:00 | XMS_ITS | Encounter Summary ---
Author Organization [employer] Address [id number] [address] [place] [address] Care Team Providers Care Service Technician Copier Name Role Phone Nataly Rome MD Primary Care Provider [phone] Reason for Referral * Diagnostic Imaging (Routine) - Closed Specialty Diagnoses / Procedures Referred By Contac t Referred To Contact Radiology Diagnoses Pain Procedures CT abdomen and pelvis with contrast [facility] [address] [place] [phone] Phone: tel: fax: Referral ID Status Reason Start Date Expiration Date Visits Re quested Visits Authorized [id number] Closed 07/09/2023 07/08/2024 1 1 Encounter Details Date Type Department Care Team (Late st Contact Info) Description 07/09/2023 Orders Only [facility] [address] [place] [phone] Transcribe, Orders Support User Pain (Primary [...] on file documented as of this encounter Functional Status documented as of this encounter Plan of Treatment Upcoming Encounters Date Type Department Care Team (Late st Contact Info) Description 12/24/2024 11:45 AM EDT Telemedicine [facility] [address] [place] [address] [place] [phone] Nataly Rome MD [address] [place] [address] 02/17/2025 1:00 PM EDT Office Visit [facility] [phone] Mary Whitlock, SPA ASSOCIATE-INTELLIGENCE INTERN [address] [place] [address] [place] [address] documented as of this encounter Goals Goal Patient Goal Type Associated Problems Recent Progress Patient-Stated? Author home General Yes Concha Jones, RN Note: Evaluation of progress towards goal: Patient plans to discharge home with self care and with assistance from family. documented as of this encounter Results * CT abdomen and pelvis with contrast (07/08/2023 12:30 PM EST) us Scanning Provider External IMG CT ORDERABLES Fin al Result MANUALLY TRANSCRIBED RESULTS documented in this encounter Visit Diagnoses Diagnosis Pain- Primary Generalized pain documented in this encounter Additional Health Concerns Assessment Noted Time PHQ-9 Depression Total Score: 0 07/08/19 24 9:44 PM EST A Body Mass Index follow-up plan has been documented for the patient 08/01/2020 3:45 PM EST documented as of this encounter Care Teams Service Technician Copier Relationship Specialty Start Date End Date Nataly Rome MD [address] [facility] [address] PCP - General Internal Medicine 01/31/23 documented as of this encounter
--- OUTSIDE RECORDS SUMMARY | 2024-12-17 18:00 | XMS_ITS | Encounter Summary ---
Author Organization [employer] [facility] tem Address [id number] [address] [place] [address] Care Team Providers Care Senior Policy Associate Name Role Phone Nataly Rome MD Primary Care Provider [phone] Encounter Details Date Type Department Care Team (Late st Contact Info) Description 04/19/2022 Telephone [facility] [address] [place] [place] [address] Lu Pemberton CMA Social History Tobacco Use Types Packs/Day [...] encounter Miscellaneous Notes * Telephone Encounter - Lu Pemberton CMA - 04/19/2022 11:14 AM EDT Patient called about his lisinopril that was to 10mg . Patient stated that yesterday was the first day of taking the new dosage and he was having dizziness for sometime yesterday. Patient does know it is a side effect was just calling to see what he should do. Please Advice * Telephone Encounter - JABIER Peterson - 04/19/2022 11:14 AM EDT What is the patient's blood pressure? * Telephone Encounter - Lu Pemberton CMA - 04/19/2022 11:14 AM EDT On 04/17/22 it was 132/72 * Telephone Encounter - JABIER Peterson - 04/19/2022 11:14 AM EDT Patient is complaining of dizziness after the increase in medication,. What is his blood pressure today, 04/19? * Telephone Encounter - Lu Pemberton CMA - 04/19/2022 11:14 AM EDT Called patient back, Patient doesn't have voicemail box set up. documented in this encounter Plan of Treatment Upcoming Encounters Date Type Department Care Team (Late st Contact Info) Description 12/24/2024 11:45 AM EDT Telemedicine [facility] [address] [facility] [place] [address] Nataly Rome MD [address] [place] [address] 02/17/2025 1:00 PM EDT Office Visit [facility] [address] [place] [phone] Mary Whitlock, RATCHET SETTER-MEDICAL INSURANCE CODING SPECIALIST [address] [facility], [facility] [address] [place] [phone] documented as of this encounter Visit Diagnoses Not on filedocumented in this encounter Additional Health Concerns Assessment Noted Time PHQ-9 Depression Total Score: 0 01/30/20 22 2:39 PM EDT A Body Mass Index follow-up plan has been documented for the patient 08/01/2020 3:45 PM EST documented as of this encounter Care Teams Senior Policy Associate Relationship Specialty Start Date End Date Nataly Rome MD [address] [address], [facility] [place] [address] PCP - General Internal Medicine 01/31/23 documented as of this encounter
--- OUTSIDE RECORDS SUMMARY | 2024-12-17 18:00 | XMS_ITS | Encounter Summary ---
Author Organization [facility] [employer] [facility] tem Address [id number] [address] [place] [address] Care Team Providers Care Mill Control Operator Name Role Phone Nataly Rome MD Primary Care Provider [phone] Encounter Details Date Type Department Care Team (Late st Contact Info) Description 11/13/2022 [facility]phone [facility] [address] [place] [address] Radha Matta, LEATHER GOODS I ASSEMBLER-COMMISSION AUDITOR [address] [facility] [address] [place] [phone] Social History Tobacco Use Types Packs/Day Years [...] encounter Miscellaneous Notes * Telephone Encounter - Dona Luau - 11/13/2022 4:27 PM EDT Patient stating that PCP started him on losartan and 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 Patient did not curing pickling packer Rx due to cost. Patient wants to know if there is another alternative that is cost effective Please advise * Telephone Encounter - JABIER Peterson - 11/13/2022 4:27 PM EDT Please call patient to determine what has changed with his insurance? The losartan was started in June. * Telephone Encounter - Janeen De Anda CMA - 11/13/2022 4:27 PM EDT Tried to call patient but no answer so I left a voicemail. documented in this encounter Plan of Treatment Upcoming Encounters Date Type Department Care Team (Late st Contact Info) Description 12/24/2024 11:45 AM EDT Telemedicine [facility] [address] [place] [address] [place] [address] Nataly Rome MD [address] [place] [address] 02/17/2025 1:00 PM EDT Office Visit [facility] [address] [facility] [place] [address] Mary Whitlock APRN-CNP [address] [facility], [address] [place] [address] documented as of this encounter Visit Diagnoses Not on filedocumented in this encounter Additional Health Concerns Assessment Noted Time PHQ-9 Depression Total Score: 0 01/30/20 22 2:39 PM EDT A Body Mass Index follow-up plan has been documented for the patient 08/01/2020 3:45 PM EST documented as of this encounter Care Teams Mill Control Operator Relationship Specialty Start Date End Date Nataly Rome MD [address], [place] [address] PCP - General Internal Medicine 01/31/23 documented as of this encounter
--- OUTSIDE RECORDS SUMMARY | 2024-12-17 18:00 | XMS_ITS | Encounter Summary ---
Author Organization [employer] tem Address [id number] [address] [place] [address] Care Team Providers Care Php Architect Name Role Phone Nataly Rome MD Primary Care Provider [phone] Encounter Details Date Type Department Care Team (Late Contact Info) Description 11/09/2020 Orders Only [facility] [address] [place] [phone] External, Scanning Provider Social History Tobacco Use Types Packs/Day Years Used Date Smoking Tobacco: Never Smokeless Tobacco: Never Alcohol Use Standard Drinks/Week Comments Yes 6 (1 standard drink = 0.6 oz pur e alcohol) PHQ-2 Answer Date Recorded Total Score 0 07/13/2020 Childcare Answer Date Recorded Childcare Unknown 11/26/2018 [...] Encounters Date Type Department Care Team (Late Contact Info) Description 12/24/2024 11:45 AM EDT Telemedicine [facility] [address] [place] [address] [place] [address] Nataly Rome MD [address] [place] [address] 02/17/2025 1:00 PM EDT Office Visit [facility] [address] [facility] [place] [phone] Mary Whitlock, STEEL DIE [employer]ESS SET UP OPERATOR-SCHOOL CROSSING GUARD SUPERVISOR [address] [facility], [address] [place] [address] documented as of this encounter Procedures Procedure Name Priority Date/Time Associated Diagnosis Comments HM COLONOSCOPY Routine 08/15/2020 documented in this encounter Results * HM COLONOSCOPY (08/15/2020) 08/15/2020 us Scanning Provider External HEALTH MAINTENANCE nal Result MANUALLY TRANSCRIBED RESULTS documented in this encounter Visit Diagnoses Not on filedocumented in this encounter Additional Health Concerns Assessment Noted Time PHQ-9 Depression Total Score: 0 07/13/19 21 1:00 PM EST A Body Mass Index follow-up plan has been documented for the patient 08/01/2020 3:45 PM EST documented as of this encounter Care Teams Php Architect Relationship Specialty Start Date End Date Nataly Rome MD [address] [place] [address] PCP - General Internal Medicine 01/31/23 documented as of this encounter
--- OUTSIDE RECORDS SUMMARY | 2024-12-17 18:00 | XMS_ITS | Encounter Summary ---
Author Organization [facility] [employer] tem Address [id number] [address] [place] [address] Care Team Providers Care Pulley Worker Name Role Phone Nataly Rome MD Primary Care Provider [phone] Encounter Details Date Type Department Care Team (Late st Contact Info) Description 05/27/2024 Telephone [facility] [address] [facility] [place] [address] Mary Whitlock, REPRESENTATIVE-PRESS OPERATOR APPRENTICE [address] [facility], [address] [place] [address] Social History Tobacco Use Types Packs/Day Years [...] encounter Miscellaneous Notes * Telephone Encounter - Idalia Wellington - 05/27/2024 8:53 AM EST Caisson Worker spoke with patient to cancel appointment for 05/27 with SK. Office will call tomás to reschedule appointment documented in this encounter Plan of Treatment Upcoming Encounters Date Type Department Care Team (Late st Contact Info) Description 12/24/2024 11:45 AM EDT Telemedicine [facility] [address] [place] [address] [place] [phone] Nataly Rome MD 605 [place], [place] [phone] 02/17/2025 1:00 PM EDT Office Visit [facility] [address] [facility] [place] [phone] Mary Whitlock, REPRESENTATIVE-PRESS OPERATOR APPRENTICE [address] [place] [address], [address] [place] [address] documented as of this encounter Goals Goal Patient Goal Type Associated Problems Recent Progress Patient-Stated? Author home General Yes Concha Jones, PRAVEEN Note: Evaluation of progress towards goal: Patient [...] documented as of this encounter Care Teams Pulley Worker Relationship Specialty Start Date End Date Nataly Rome MD [address] [facility] [address] PCP - General Internal Medicine 01/31/23 documented as of this encounter
--- NOTE | 2024-12-17 18:04 | CT_ITS ---
[address] [address] Patient Name: LUCINA GOODRICH MRN: [id number] date: 1970 Sex: M Assigned Patient Location: ED.MAIN Current Patient Location: ED.MAIN Accession/Order Number: [id number] Exam Date: 12/17/2024 19:19 Report Date: 12/17/2024 19:24 At the request of: KEHINDE BAUM MD Procedure: CT pelvis w con CT pelvis with contrast TECHNIQUE: 100 cc of Omni 300The CT exam was performed using one or more the following dose reduction techniques: Automated exposure control, adjustment of the MA and/or Kv according to patient size, or use of the iterative reconstruction technique. COMPARISON: 07/08/2023 HISTORY: Concern for left buttocks abscess. Redness of the left buttocks for one week. Left buttocks subcutaneous fat stranding. No fluid collections. No hematoma. The gluteal muscles unremarkable. Bony structures intact. Intrapelvic structures unremarkable. CT/CT pelvis w con IMPRESSION: Left buttocks cellulitis. No abscess. Impression dictated by: Ezekiel Nolan M.D. 12/17/2024 7:24 PM Dictation Location: [place] [address] Electronically authenticated by: [id number] Y Date: 12/17/2024 19:24
--- NOTE | 2024-12-17 18:09 | ED.GENADUL1 ---
HPI HPI - General Adult General Chief complaint: Skin/Abscess/Foreign Body Stated complaint: RASH Time Seen by Provider: 12/17/24 17:59 Source: patient Mode of arrival: walk-in Limitations: no limitations History of Present Illness HPI narrative: 54-year-old male presents for redness and discomfort to his left buttock associated with an abscess. He states has had it for about 9 or 10 days and he saw a healthcare provider for the first time and they directed him here. He does not recall any drainage or any sort of trauma. He was noted to have a fever beginning today. The area is isolated to his left buttock. No abdominal pain or vomiting. Related Data Allergies Allergy/AdvReac Type Severity Reaction Status Date / Time amoxicillin Allergy Unknown Hives Verified 12/17/24 17:54 Opioid HPI Opioid Management Most Recent Opioid Data: Last Pain Scale 2 Today, 18:21 Last MAR Pain Assessment Today, 18:21 Review of Systems ROS Narrative A ten point review of systems is negative except as noted above. PFSH PFSH Social History Smoking status: Never smoker Little interest or pleasure in doing things: not at all Feeling down, depressed, or hopeless: not at all Exam Narrative Exam Narrative: Nurses note and vital signs reviewed and patient is not hypoxic. General: The patient appears well and in no apparent distress. Patient is resting comfortably on cart. Skin: Warm, dry, no pallor noted. There is no rash noted. Head: Normocephalic, atraumatic Eye: Normal conjunctiva, no drainage Ears, Nose, Mouth, and Throat: oral mucosa is moist. Nares patent. Cardiovascular: Regular Rate and Rhythm Respiratory: Patient is in no distress, no accessory muscle use, lungs are clear to auscultation, no wheezing, rales or rhonchi Back: non-tender GI: Obese and nontender Musculoskeletal: Left buttock is examined. There is erythema on the left buttocks only with an area of darker erythema over his ischial tuberosity area. There is no fluctuance or open area or drainage. There is no erythema or mass or swelling in the intergluteal region. Neurological: A&O x4, normal speech Psychiatric: Cooperative Constitutional Vital Signs, click to edit/add: Last Vital Signs Temp 100.3 F 12/17/24 17:54 Pulse 114 H 12/17/24 17:54 Resp 20 12/17/24 17:54 BP 131/90 12/17/24 17:54 Pulse Ox 97 12/17/24 17:54 O2 Del Method Room Air 12/17/24 17:54 Course Vital Signs Vital signs: Vital Signs Temperature 100.3 F 12/17/24 17:54 Pulse Rate 114 H 12/17/24 17:54 Respiratory Rate 20 12/17/24 17:54 Blood Pressure 131/90 12/17/24 17:54 Pulse Oximetry 97 12/17/24 17:54 Oxygen Delivery Method Room Air 12/17/24 17:54 Temperature 100.3 F 12/17/24 17:54 Pulse Rate 114 H 12/17/24 17:54 Respiratory Rate 20 12/17/24 17:54 Blood Pressure 131/90 12/17/24 17:54 Pulse Oximetry 97 12/17/24 17:54 Oxygen Delivery Method Room Air 12/17/24 17:54 Medical Decision Making MDM Narrative Medical decision making narrative: WBC is 13,000. CT scan is ordered and pending and the patient is signed out to Dr. Cee at change of shift. Differential Diagnosis Differential Diagnosis: Abscess, cellulitis Lab Data Lab results reviewed: Yes I reviewed the patient's lab results Labs: Lab Results 12/17/24 Range/Units 18:09 WBC 13.4 H (4.0-11.0) 10^3/uL RBC 4.95 (4.70-6.10) 10^6/uL Hgb 14.9 (14.0-18.0) g/dL Hct 43.3 (42.0-54.0) % MCV 87.5 (80.0-94.0) fL MCH 30.1 (25.9-34.0) pg MCHC 34.4 (29.9-35.2) g/dL RDW 13.4 (11.0-15.0) % Plt Count 244 (150-450) 10^3/uL MPV 10.1 (9.5-13.5) fL Neut % (Auto) 78.3 H (43.0-75.0) % Lymph % (Auto) 13.1 L (20.5-60.0) % Coleman % (Auto) 7.6 (1.7-12.0) % Eos % (Auto) 0.4 L (0.9-7.0) % Baso % (Auto) 0.4 (0.2-2.0) % Neut # (Auto) 10.5 H (1.4-6.5) 10^3/uL Lymph # (Auto) 1.8 (1.2-3.8) 10^3/uL Coleman # (Auto) 1.0 H (0.3-0.8) 10^3/uL Eos # (Auto) 0.1 (0.0-0.7) 10^3/uL Baso # (Auto) 0.1 (0.0-0.1) 10^3/uL Abs Immat Gran (auto) 0.03 (0.00-0.03) 10^3/uL Imm/Tot Granulo (auto) 0.2 (0.0-0.5) % Sodium 139 (136-145) mmol/L Potassium 3.6 (3.5-5.1) mmol/L Chloride 102 (98-107) mmol/L Carbon Dioxide 27.6 (21.0-32.0) mmol/L Anion Gap 13.0 BUN 13.0 (7.0-18.0) mg/dL Creatinine 0.77 (0.70-1.30) mg/dL Est GFR ( Amer) >60 (>=60 mL/min/1.73m^2) Est GFR (Non-Af Amer) >60 (>=60 mL/min/1.73m^2) BUN/Creatinine Ratio 16.9 Glucose 97 (74-106) mg/dL Calcium 8.9 (8.5-10.1) mg/dL Discharge Plan Discharge Patient Disposition: Still a Patient
[2024-12-17 18:21] LABS: Hematocrit 43.3 % (42.0-54.0); Hemoglobin 14.9 g/dL (14.0-18.0); Immature Granulocytes Abs Auto 0.03 10^3/uL (0.00-0.03); Immature Granulocytes Pct Auto 0.2 % (0.0-0.5); Lymphocytes Absolute Auto 1.8 10^3/uL (1.2-3.8); Mean Corpuscular HGB Conc 34.4 g/dL (29.9-35.2); Mean Corpuscular Hemoglobin 30.1 pg (25.9-34.0); Mean Corpuscular Volume 87.5 fL (80.0-94.0); Platelet Count 244 10^3/uL (150-450); Red Blood Count 4.95 10^6/uL (4.70-6.10); White Blood Count 13.4 10^3/uL (4.0-11.0)
[2024-12-17] MEDS: ACETAMINOPHEN 325 MG TABLET 650 MG PO (18:21)
[2024-12-17 18:32] LABS: Anion Gap 13.0; Blood Urea Nitrogen 13.0 mg/dL (7.0-18.0); Calcium 8.9 mg/dL (8.5-10.1); Carbon Dioxide 27.6 mmol/L (21.0-32.0); Chloride 102 mmol/L (98-107); Estimated GFR (African America >60 (>=60 mL/min/1.73m^2); Estimated GFR (Non-African Ame >60 (>=60 mL/min/1.73m^2); Glucose 97 mg/dL (74-106); Potassium 3.6 mmol/L (3.5-5.1); Sodium 139 mmol/L (136-145)
[2024-12-17 18:41] LABS: Lactate/Lactic Acid 1.2 mmol/L (0.4-2.0)
[2024-12-17 19:23] VITALS: BP 140/86; PULSE 98; O2SAT 98
--- NOTE | 2024-12-17 19:35 | ED.SKABFB1 ---
HPI - Skin/Abscess/Foreign Bdy General Chief complaint: Skin/Abscess/Foreign Body Stated complaint: RASH Time Seen by Provider: 12/17/24 17:59 Source: patient Mode of arrival: walk-in Limitations: no limitations History of Present Illness HPI narrative: This 54-year-old male was signed out to me at shift change pending CT scan. He presents for evaluation of redness swelling and pain overlying the left buttock since December 06. The patient's has a picture of the area when it started. It was red and tender looking. There has not been any drainage. He has not been soaking. He has not diabetic. 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 When he got home he asked his to look at the area again and she felt that it was worse. He also developed a fever today. He states he feels fine as long as he takes 2 Tylenol every 12 hours. He is well-appearing. I reviewed his vital signs. He was febrile upon arrival with a temperature of 100.3. He is mildly tachycardic at 98. He is not hypotensive. Patient was seen and examined. He is well-appearing he has no complaints. I did reevaluate his left buttock. There is an irregular area approximately 8 cm x 8 cm with some scabbing at the medial aspect. It does not involve the rectum. It is not indurated or draining. His white count is elevated at 13.4. Electrolytes are normal. Lactic acid is normal. CT scan shows subcutaneous fat stranding overlying the left buttocks with no fluid collections, no hematoma, gluteal muscles are unremarkable and bony structures are intact. The results of the CT scan were discussed with the patient and his . He will be given an IV dose of clindamycin in the emergency department as he is penicillin allergic and discharged home with a course of clindamycin to use over the next 10 days. Patient is agreeable with this plan. I also encouraged him to soak in warm water to help the area heal and the infection to resolve. Related Data Allergies Allergy/AdvReac Type Severity Reaction Status Date / Time amoxicillin Allergy Unknown Hives Verified 12/17/24 17:54 PFSH PFSH Social History Smoking status: Never smoker Little interest or pleasure in doing things: not at all Feeling down, depressed, or hopeless: not at all Exam Constitutional Vital Signs, click to edit/add: Last Vital Signs Temp 100.3 F 12/17/24 17:54 Pulse 98 H 12/17/24 19:23 Resp 20 12/17/24 19:23 BP 140/86 12/17/24 19:23 Pulse Ox 98 12/17/24 19:23 O2 Del Method Room Air 12/17/24 17:54 Course Vital Signs Vital signs: Vital Signs Temperature 100.3 F 12/17/24 17:54 Pulse Rate 114 H 12/17/24 17:54 Respiratory Rate 12/17/24 17:54 Blood Pressure 131/90 12/17/24 17:54 Pulse Oximetry 97 12/17/24 17:54 Oxygen Delivery Method Room Air 12/17/24 17:54 Temperature 100.3 F 12/17/24 17:54 Pulse Rate 98 H 12/17/24 19:23 Respiratory Rate 20 12/17/24 19:23 Blood Pressure 140/86 12/17/24 19:23 Pulse Oximetry 98 12/17/24 19:23 Oxygen Delivery Method Room Air 12/17/24 17:54 MDM - Skin/Abscess/Foreign Bdy Lab Data Labs: Lab Results 12/17/24 Range/Units 18:09 WBC 13.4 H (4.0-11.0) 10^3/uL RBC 4.95 (4.70-6.10) 10^6/uL Hgb 14.9 (14.0-18.0) g/dL Hct 43.3 (42.0-54.0) % MCV 87.5 (80.0-94.0) fL MCH 30.1 (25.9-34.0) pg MCHC 34.4 (29.9-35.2) g/dL RDW 13.4 (11.0-15.0) % Plt Count 244 (150-450) 10^3/uL MPV 10.1 (9.5-13.5) fL Neut % (Auto) 78.3 H (43.0-75.0) % Lymph % (Auto) 13.1 L (20.5-60.0) % [place] % (Auto) 7.6 (1.7-12.0) % Eos % (Auto) 0.4 L (0.9-7.0) % Baso % (Auto) 0.4 (0.2-2.0) % Neut # (Auto) 10.5 H (1.4-6.5) 10^3/uL Lymph # (Auto) 1.8 (1.2-3.8) 10^3/uL [place] # (Auto) 1.0 H (0.3-0.8) 10^3/uL Eos # (Auto) 0.1 (0.0-0.7) 10^3/uL Baso # (Auto) 0.1 (0.0-0.1) 10^3/uL Abs Immat Gran (auto) 0.03 (0.00-0.03) 10^3/uL Imm/Tot Granulo (auto) 0.2 (0.0-0.5) % Sodium 139 (136-145) mmol/L Potassium 3.6 (3.5-5.1) mmol/L Chloride 102 (98-107) mmol/L Carbon Dioxide 27.6 (21.0-32.0) mmol/L Anion Gap 13.0 BUN 13.0 (7.0-18.0) mg/dL Creatinine 0.77 (0.70-1.30) mg/dL Est GFR ( Amer) >60 (>=60 mL/min/1.73m^2) Est GFR (Non-Af Amer) >60 (>=60 mL/min/1.73m^2) BUN/Creatinine Ratio 16.9 Glucose 97 (74-106) mg/dL Lactate 1.2 (0.4-2.0) mmol/L Calcium 8.9 (8.5-10.1) mg/dL Discharge Plan Discharge Chief Complaint: Skin/Abscess/Foreign Body Clinical Impression: Cellulitis, Cellulitis of buttock, left Patient Disposition: Home, Self-Care Time of Disposition Decision: 19:38 Print Language: Georgian Instructions: Cellulitis (ED), Warm Compress or Soak (ED) Referrals: Nataly Rome ND [Primary Care Provider] - 1 week
[2024-12-17] MEDS: CLINDAMYCIN PHOSPHATE/D5W 900 MG/50 ML PREMIX 100 MG IV (19:46)
== END 2024-12-17 20:20 | disposition home or self-care (01) ==
PROVIDERS: Emergency Medicine; Emergency Provider Emergency Medicine; PCP Student in an Organized Health Care Education/Training Program
DX: L03.317 Cellulitis of buttock (principal); R50.9 Fever, unspecified; Z88.0 Allergy status to penicillin
CPT/HCPCS: 36415; 72193; 80048; 83605; 85025; 96365; 99285; J0736; Q9967